=== PATIENT | male | born 1940 | race Caucasian/White ===

== ENCOUNTER → 2017-11-19 10:00 | Outpatient (CLI) | payer MEDICARE, SELFPAY | PROVIDERS: Family Provider Family Medicine | DX: Z23 Encounter for immunization (principal) | CPT/HCPCS: 90471; 90662 ==

== ENCOUNTER → 2018-03-06 13:57 | Outpatient (CLI) | payer MEDICARE, SELFPAY ==
[2018-03-06 14:43] LABS: Blood Urea Nitrogen 23 mg/dL (9-20); Calcium 9.8 mg/dL (8.4-10.2); Carbon Dioxide 28 mmol/L (22-32); Chloride 102 mmol/L (98-107); Cholesterol 196 mg/dL (140-199); Estimated Glomerular Filt Rate > 60.0 mL/min (>60); Glucose 113 mg/dL (80-110); HDL Cholesterol 38 mg/dL (40-60); HEMOLYSIS < 15 (0-50); LDL Cholesterol Calculated 127 mg/dL (<100); Potassium 4.1 mmol/L (3.4-5.1); Sodium 142 mmol/L (137-145); Triglycerides 156 mg/dL (35-150)
[2018-03-06 14:53] LABS: Add Manual Diff / Slide Review NO; Basophils Percent Auto 0.6 % (0-2); Eosinophils Percent Auto 2.1 % (2-4); Hematocrit 43.2 % (41-53); Hemoglobin 14.7 g/dL (13.5-17.5); Lymphocytes Percent Auto 30.2 % (25-40); Mean Corpuscular HGB Conc 33.9 % (30-36); Mean Corpuscular Hemoglobin 31.6 PG (26-34); Mean Corpuscular Volume 93.2 fL (80-100); Monocytes Percent Auto 6.9 % (3-14); Neutrophils Absolute Auto 3300 /uL (1500-7000); Neutrophils Percent Auto 60.2 % (50-75); Platelet Count 158 X10^3/uL (150-400); Red Blood Cell Count 4.64 X10^6/uL (4.5-5.9); Red Cell Distribution Width 14.1 % (11.6-14.8); White Blood Cell Count 5.4 X10^3/uL (4.5-11.0)
[2018-03-06 16:26] LABS: Vitamin D 25 Hydroxy (D3) 47.5 ng/mL (30.0-100.0)
== END ==
PROVIDERS: PCP Student in an Organized Health Care Education/Training Program; Visit Provider Student in an Organized Health Care Education/Training Program
DX: D69.6 Thrombocytopenia, unspecified (principal); E78.2 Mixed hyperlipidemia; Z13.220 Encounter for screening for lipoid disorders; E55.9 Vitamin D deficiency, unspecified
CPT/HCPCS: 36415; 80048; 80061; 82306; 85025

== ENCOUNTER → 2018-12-02 10:29 | Outpatient (CLI) | payer MEDICARE, SELFPAY | PROVIDERS: PCP Student in an Organized Health Care Education/Training Program | DX: Z23 Encounter for immunization (principal) | CPT/HCPCS: 90471; 90662 ==

== ENCOUNTER → 2019-12-22 03:42 | Outpatient (CLI) | payer MEDICARE, SELFPAY | PROVIDERS: PCP Student in an Organized Health Care Education/Training Program; Referring Provider Internal Medicine; Visit Provider Internal Medicine | DX: Z23 Encounter for immunization (principal) | CPT/HCPCS: 90471; 90662 ==

== ENCOUNTER → 2019-12-25 11:54 | Outpatient (CLI) | payer MEDICARE, SELFPAY ==
--- NOTE | 2019-12-25 11:58 | DI.RAD.S_ITS ---
PROCEDURE: XR KNEE RT 3V INDICATIONS: Right knee pain TECHNIQUE: 3 views of the knee were acquired. COMPARISON: None. FINDINGS: Bones: No fractures or dislocations. No suspicious bony lesions. Mild to moderate medial, lateral patellofemoral compartment narrowing. Punctate area of increased density is noted overlying the lateral compartment. Soft tissues: Moderate joint effusion. No suspicious soft tissue calcifications. IMPRESSION: 1. Moderate effusion with tricompartmental degenerative change. 2. Focus of increased density overlying the lateral compartment. This could represent a small loose body. Dictated by: Sharifa Pardo M.D. on 12/25/2019 at 13:57 Approved by: Sharifa Pardo M.D. on 12/25/2019 at 13:59
[2019-12-25 13:14] LABS: BUN Creatinine Ratio 22.3 (6-22); Blood Urea Nitrogen 23 mg/dL (9-20); Calcium 9.6 mg/dL (8.4-10.2); Carbon Dioxide 31 mmol/L (22-32); Chloride 104 mmol/L (98-107); Estimated Glomerular Filt Rate > 60.0 mL/min (>60); Glucose 108 mg/dL (80-110); HEMOLYSIS < 15 (0-50); Potassium 4.3 mmol/L (3.4-5.1); Sodium 141 mmol/L (137-145)
[2019-12-25 13:16] LABS: Hemoglobin A1C% w Est Avg Glu 5.9 % (4.0-6.0)
== END ==
PROVIDERS: PCP Student in an Organized Health Care Education/Training Program; Referring Provider Student in an Organized Health Care Education/Training Program; Visit Provider Student in an Organized Health Care Education/Training Program
DX: M25.561 Pain in right knee (principal); M25.461 Effusion, right knee; R73.9 Hyperglycemia, unspecified; Z79.1 Long term (current) use of non-steroidal anti-inflammatories (NSAID)
CPT/HCPCS: 36415; 73562; 80048; 83036

== ENCOUNTER → 2019-12-26 10:33 | Outpatient (CLI) | payer MEDICARE, SELFPAY ==
[2019-12-28 08:24] LABS: Fecal Immunochemical Test Negative (Negative)
== END ==
PROVIDERS: PCP Student in an Organized Health Care Education/Training Program; Referring Provider Student in an Organized Health Care Education/Training Program; Visit Provider Student in an Organized Health Care Education/Training Program
DX: Z12.11 Encounter for screening for malignant neoplasm of colon (principal)
CPT/HCPCS: 82274

== ENCOUNTER → 2020-03-10 09:34 | Outpatient (CLI) | payer MEDICARE, SELFPAY ==
[2020-03-10] MEDS: COVID-19 VACC(MODERNA-1)/PF 100 MCG/0.5 ML VIAL IM (09:39)
== END ==
PROVIDERS: PCP Student in an Organized Health Care Education/Training Program; Visit Provider Internal Medicine
DX: Z23 Encounter for immunization (principal)
CPT/HCPCS: 0011A; 91301

== ENCOUNTER → 2020-04-06 09:32 | Outpatient (CLI) | payer MEDICARE, SELFPAY ==
[2020-04-06] MEDS: COVID-19 VACC #2, MRNA(MOD) 100 MCG/0.5 ML VIAL IM (09:40)
== END ==
PROVIDERS: PCP Student in an Organized Health Care Education/Training Program; Visit Provider Internal Medicine
DX: Z23 Encounter for immunization (principal)
CPT/HCPCS: 0012A; 91301

== ENCOUNTER → 2020-05-03 10:55 | Outpatient (CLI) | payer MEDICARE, SELFPAY ==
--- NOTE | 2020-05-03 10:55 | DI.US.S_ITS ---
PROCEDURE: US RENAL COMPLETE INDICATIONS: Urinary retention TECHNIQUE: Real-time scanning was performed of the kidneys and bladder, with image documentation. COMPARISON: US, ABDOMEN LIMITED, 11/15/2011, 10:00. FINDINGS: Kidneys: Kidneys are normal in size. Right kidney measures 12.6 cm long; left kidney measures 12.2 cm long. Right renal cortical thickness is 2.5 cm; left renal cortical thickness is 2.5 cm. Renal cortical echotexture is normal. No hydronephrosis or nephrolithiasis. No suspicious solid mass lesions. Multiple left renal cysts, largest measuring up to 8.2 cm. Bladder: Pre-void bladder volume is 125 mL. Post-void residual is 59 mL. Pre-void images demonstrate no intraluminal masses or stones. On pre-void images, bilateral ureteral jets are noted with color Doppler interrogation. (Of note, ureteral jets may not be detectable in up to 25% of cases due to insufficient differences in specific gravity between ureteral and bladder urine). Enlarged prostate measuring 5.6 x 5.3 x 5.7 cm. Miscellaneous: No free pelvic fluid. IMPRESSION: Multiple left renal cysts; otherwise normal appearance of the kidneys and no hydronephrosis is present. Dictated by: Peter Pang [facility] Interpreted: Sharifa Pardo MD on 05/03/2020 at 12:35 Approved by: Sharifa Pardo M.D. on 05/03/2020 at 13:53
== END ==
PROVIDERS: PCP Student in an Organized Health Care Education/Training Program; Referring Provider Student in an Organized Health Care Education/Training Program; Visit Provider Student in an Organized Health Care Education/Training Program
DX: N40.0 Benign prostatic hyperplasia without lower urinary tract symptoms (principal); N52.9 Male erectile dysfunction, unspecified; R33.9 Retention of urine, unspecified; N28.1 Cyst of kidney, acquired
CPT/HCPCS: 76770

== ENCOUNTER → 2020-07-01 15:06 | Outpatient (CLI) | payer MEDICARE, SELFPAY ==
[2020-07-01 16:41] LABS: Hemoglobin A1C% w Est Avg Glu 5.8 % (4.0-6.0)
== END ==
PROVIDERS: PCP Student in an Organized Health Care Education/Training Program; Referring Provider Student in an Organized Health Care Education/Training Program; Visit Provider Student in an Organized Health Care Education/Training Program
DX: R73.03 Prediabetes (principal)
CPT/HCPCS: 36415; 83036

== ENCOUNTER → 2021-01-09 14:19 | Outpatient (CLI) | payer MEDICARE, SELFPAY ==
[2021-01-09 15:22] LABS: Hemoglobin A1C% w Est Avg Glu 5.7 % (4.0-6.0)
[2021-01-09 18:49] LABS: Creatinine Urine Random 163.1 mg/dL
[2021-01-09 18:53] LABS: Microalbumi Creatinin Ratio Ur 13.4 ug/mg CR (<30); Microalbumin Urine Random 2.2 mg/dL (0-1.6)
== END ==
PROVIDERS: PCP Student in an Organized Health Care Education/Training Program; Referring Provider Student in an Organized Health Care Education/Training Program; Visit Provider Student in an Organized Health Care Education/Training Program
DX: R73.03 Prediabetes (principal)
CPT/HCPCS: 36415; 82043; 82570; 83036

== ENCOUNTER → 2022-01-11 11:44 | Outpatient (CLI) | payer MEDICARE, SELFPAY ==
[2022-01-11 12:52] LABS: Hemoglobin A1C% w Est Avg Glu 5.9 % (4.0-6.0)
[2022-01-11 13:55] LABS: Blood Urea Nitrogen 20 mg/dL (9-20); Calcium 9.4 mg/dL (8.4-10.2); Carbon Dioxide 32 mmol/L (22-32); Chloride 100 mmol/L (98-107); Cholesterol 142 mg/dL (140-199); Estimated Glomerular Filt Rate > 60 mL/min (>60); Glucose 102 mg/dL (80-110); HDL Cholesterol 31 mg/dL (40-60); HEMOLYSIS < 15 (0-50); LDL Cholesterol Calculated 91 mg/dL (<100); Potassium 4.2 mmol/L (3.4-5.1); Sodium 140 mmol/L (137-145); Triglycerides 99 mg/dL (35-150)
[2022-01-11 16:15] LABS: Creatinine Urine Random 51.7 mg/dL
[2022-01-11 16:36] LABS: Microalbumin Urine Random < 0.6 mg/dL (0-1.6)
== END ==
PROVIDERS: PCP Student in an Organized Health Care Education/Training Program; Referring Provider Student in an Organized Health Care Education/Training Program; Visit Provider Student in an Organized Health Care Education/Training Program
DX: R73.03 Prediabetes (principal); E78.2 Mixed hyperlipidemia; Z79.1 Long term (current) use of non-steroidal anti-inflammatories (NSAID)
CPT/HCPCS: 36415; 80048; 80061; 82043; 82570; 83036

== ENCOUNTER → 2022-09-25 16:39 | Outpatient (CLI) | payer MEDICARE, SELFPAY ==
--- NOTE | 2022-09-25 16:41 | DI.RAD.S_ITS ---
PROCEDURE: XR SHOULDER RT MIN 2V INDICATIONS: rt shoulder pain TECHNIQUE: 3 views of the shoulder were acquired. COMPARISON: None. FINDINGS: Bones: No fractures or dislocations. No suspicious bony lesions. Visualized ribs appear intact. Mild glenohumeral and acromioclavicular joint osteoarthritis. Soft tissues: No suspicious soft tissue calcifications. IMPRESSION: Mild osteoarthritis. Dictated by: Anamaria Atwood MD, PhD on 09/25/2022 at 16:52 Approved by: Anamaria Atwood MD, PhD on 09/25/2022 at 16:52
== END ==
PROVIDERS: PCP Student in an Organized Health Care Education/Training Program; Referring Provider Pediatrics; Visit Provider Pediatrics
DX: M25.511 Pain in right shoulder (principal); M19.011 Primary osteoarthritis, right shoulder
CPT/HCPCS: 73030

== ENCOUNTER → 2022-11-16 15:04 | Outpatient (CLI) | payer MEDICARE, SELFPAY ==
[2022-11-16 15:32] LABS: Add Manual Diff / Slide Review NO; Basophils Absolute Auto 0 /uL (0-100); Basophils Percent Auto 0.7 % (0-2); Eosinophils Absolute Auto 500 /uL (0-450); Eosinophils Percent Auto 7.2 % (2-4); Hemoglobin 14.5 g/dL (13.5-17.5); Lymphocytes Absolute Auto 1300 /uL (1100-4500); Lymphocytes Percent Auto 19.7 % (25-40); Mean Corpuscular HGB Conc 34.4 % (30-36); Mean Corpuscular Hemoglobin 31.6 PG (26-34); Mean Corpuscular Volume 91.7 fL (80-100); Monocytes Absolute Auto 600 /uL (0-900); Monocytes Percent Auto 9.6 % (3-14); Neutrophils Absolute Auto 4200 /uL (1500-7000); Neutrophils Percent Auto 62.8 % (50-75); Platelet Count 125 X10^3/uL (150-400); Red Blood Cell Count 4.58 X10^6/uL (4.5-5.9); Red Cell Distribution Width 13.7 % (11.6-14.8); White Blood Cell Count 6.7 X10^3/uL (4.5-11.0)
[2022-11-16 15:46] LABS: Alanine Aminotransferase 28 IU/L (<50); Albumin 4.6 g/dL (3.5-5.0); Albumin Globulin Ratio 1.4 (1.0-2.8); Alkaline Phosphatase 61 U/L (38-126); Aspartate Aminotransferase 48 IU/L (17-59); BUN Creatinine Ratio 28.6 (6-22); Bilirubin Total 0.7 mg/dL (0.2-1.3); Blood Urea Nitrogen 26 mg/dL (9-20); Calcium 9.9 mg/dL (8.4-10.2); Carbon Dioxide 30 mmol/L (22-32); Chloride 102 mmol/L (98-107); Cholesterol 150 mg/dL (140-199); Estimated Glomerular Filt Rate > 60 mL/min (>60); Globulin 3.3 g/dL (1.7-4.1); Glucose 100 mg/dL (80-110); HDL Cholesterol 33 mg/dL (40-60); HEMOLYSIS 15 (0-50); LDL Cholesterol Calculated 87 mg/dL (<100); Potassium 4.1 mmol/L (3.4-5.1); Sodium 139 mmol/L (137-145); Total Protein 7.9 g/dL (6.3-8.2); Triglycerides 151 mg/dL (35-150)
[2022-11-18 19:51] LABS: Hep C Virus Ab w/Reflex Quant NEGATIVE s/c (NEGATIVE)
== END ==
PROVIDERS: PCP Pediatrics; Referring Provider Pediatrics; Visit Provider Pediatrics
DX: E78.2 Mixed hyperlipidemia (principal); Z00.00 Encounter for general adult medical examination without abnormal findings; N40.0 Benign prostatic hyperplasia without lower urinary tract symptoms; M18.9 Osteoarthritis of first carpometacarpal joint, unspecified
CPT/HCPCS: 36415; 80053; 80061; 85025; 86803

== ENCOUNTER → 2023-03-25 15:55 | Outpatient (CLI) | payer MEDICARE, SELFPAY ==
--- NOTE | 2023-03-25 15:58 | DI.RAD.S_ITS ---
PROCEDURE: XR LUMBAR SPINE MIN 4V INDICATIONS: eval and treat back pain TECHNIQUE: 5 views of the lumbar spine were acquired, including bilateral oblique views. COMPARISON: None. FINDINGS: Bones: 5 nonrib-bearing vertebrae are present. There is normal bony alignment. No vertebral body compression fracture seen. No suspicious bony lesions. Soft tissues: Overlying bowel gas pattern is normal. No suspicious soft tissue calcifications. Oblique images: No pars defect seen. IMPRESSION: No acute abnormality seen Dictated by: Curly Gillespie M.D. on 03/25/2023 at 18:26 Approved by: Curly Gillespie M.D. on 03/25/2023 at 18:28
== END ==
PROVIDERS: PCP Family Medicine; Referring Provider Family Medicine; Visit Provider Family Medicine
DX: M47.9 Spondylosis, unspecified (principal)
CPT/HCPCS: 72110

== ENCOUNTER 2023-06-26 10:35 | Outpatient (CLI) | payer MEDICARE, SELFPAY ==
[2023-06-26] VITALS (8 sets, daily range): BP systolic 134–170; BP diastolic 65–81; PULSE 53–69; RESP 14–19; TEMP 36.2; O2SAT 96–100
--- NOTE | 2023-06-26 | DI.RAD.S_ITS ---
PROCEDURE: PAIN CLUNEAL NRV BLOCK DEBORAH INDICATIONS: CLUENAL NEURALGIA COMPARISON: None. FINDINGS: Fluoroscopic spot filming was performed to verify placement of spinal needles at the superior iliac crest level(s), as labeled on the films. Appropriate location(s) of the needle tip(s) was confirmed by injection of iodinated contrast. IMPRESSION: Spinal needles projected at the superior iliac crests. Please see procedural note for details. Dictated by: Pedro Lerma M.D. on 06/26/2023 at 22:30 Approved by: Pedro Lerma M.D. on 06/26/2023 at 22:30
[2023-06-26] MEDS: MIDAZOLAM 2 MG/2 ML VIAL 1 MG IV (11:45)
[2023-06-26] MEDS: DEXAMETHASONE 10 MG/ML VIAL 20 MG INJ (11:48)
[2023-06-26] MEDS: BUPIVACAINE 0.25% (PF) VIAL 10 ML INJ (11:48)
[2023-06-26] MEDS: iopamidoL 15 ML VIAL 3 ML INJ (11:49)
--- NOTE | 2023-06-26 12:29 | P.PCN_ITS ---
Date/Time/Diagnoses Date of procedure: 06/26/23 Time of procedure: 11:00 Procedure Notes Physician: Miko Alejo Total Fluoroscopy time (seconds): 18 Total sedation minutes: 10 Procedure in detail & Post-procedure care: Bilateral Cluneal Nerve Injection Indications: Charlie is presenting for treatment of cluneal neuralgia with low back and buttock pain. Preoperative diagnosis: Bilateral cluneal neuralgia Postoperative diagnosis: Same Focused Examination: Ax3 Mood and affect are normal Vital Signs: VSS ASA: 2 Consent: Following review of allergies and potential side effects/complications, including, but not necessarily limited to, infection, allergic reaction, local tissue breakdown, stroke, temporary or permanent nerve injury, paralysis, and possible , the patient indicated that they understood and agreed to proceed.? An informed consent document was signed by the patient, witnessed by a nurse and placed in the patient's chart.? Additionally, other treatment options including medications and physical therapy were reviewed with the patient. All questions were answered. Site was then marked. Anesthesia: After review of previous anesthetic history and IV conscious sedation, the patient was deemed safe to proceed with today's procedure with IV conscious sedation. IV sedation was accomplished with midazolam 1 mg administered by the RN after order by Dr. Alejo. Sedation was titrated to patient comfort during the course of the procedure. Patient remained responsive to all verbal commands. Position: Prone Monitoring: NIBP, Pulse oximetry, 3 lead EKG Needle used: 25 gauge, 3.5 inch spinal needle x3 Contrast: Isovue 300-M 3mL Injectate: Dexamethasone 7.5 mg with 8 mL 0.25% Bupivacaine - per side Technique: The skin was prepped with chloraprep and then draped in a sterile fashion. Time out was performed as per protocol. Oxygen applied via NC. Midline of the spine was identified using fluoroscopy. The skin was measured 8 cm from midline and sterile catrachita placed on the skin delineating the superior aspect of the iliac crest on the right. Two flores were subsequently made 2 cm medial and 2 cm lateral for a total of 3 target sites. Skin and subcutaneous structures of the needle entry sites were then infiltrated with 5 mL of lidocaine 1%. Under AP and contralateral oblique control, the needle was guided to the superior aspect of the iliac crest in the 3 locations. Contrast was injected and the spread was consistent with appropriate needle location. There was no evidence for intravascular uptake. After negative aspiration, the above-mentioned injectate was then slowly administered and the needles withdrawn. The patient expressed no unusual discomfort or paresthesias during needle positioning or injection. Band- Aids applied to injection sites. This process was then repeated for the left side. EBL: less than 1 ml Complications: None Post Procedure: Patient was taken to the recovery and monitored. The patient was provided a Pain Log to continue to record the patient's response to the target- specific procedure prior to the patient's follow-up visit with the referring physician. Patient was stable upon discharge. Detailed post procedure instructions were provided. Patient was asked to call in the event of worsening pain, fever, weakness, numbness or bladder/bowel incontinence.
== END 2023-06-26 12:18 | disposition home or self-care (01) ==
LOC: RAD 10:36
PROVIDERS: PCP Family Medicine; Referring Provider Anesthesiology; Visit Provider Anesthesiology
DX: G58.8 Other specified mononeuropathies (principal)
CPT/HCPCS: 64450; 99152; J1100; J2250; J3490

== ENCOUNTER → 2023-09-03 14:29 | Outpatient (CLI) | payer MEDICARE, SELFPAY ==
--- NOTE | 2023-09-03 14:30 | DI.RAD.S_ITS ---
PROCEDURE: XR KNEE RT 3V INDICATIONS: Right knee pain TECHNIQUE: 3 views of the knee were acquired. COMPARISON: [facility], , XR KNEE RT 3V, 12/25/2019, 12:06. FINDINGS: Bones: No fractures or dislocations. Osteophytic lipping. Not significantly changed. No suspicious bony lesions. Soft tissues: No joint effusion. No suspicious soft tissue calcifications. IMPRESSION: Moderate right knee DJD. Dictated by: Jas Hodges M.D. on 09/03/2023 at 17:46 Approved by: Jas Hodges M.D. on 09/03/2023 at 17:49
== END ==
PROVIDERS: PCP Family Medicine; Referring Provider Nurse Practitioner Family; Visit Provider Nurse Practitioner Family
DX: M25.561 Pain in right knee (principal); M17.11 Unilateral primary osteoarthritis, right knee
CPT/HCPCS: 73562

== ENCOUNTER → 2023-11-20 06:52 | Outpatient (CLI) | payer MEDICARE, SELFPAY ==
[2023-11-20 08:18] LABS: Add Manual Diff / Slide Review NO; Basophils Absolute Auto 0 /uL (0-100); Basophils Percent Auto 0.6 % (0-2); Eosinophils Absolute Auto 100 /uL (0-450); Eosinophils Percent Auto 2.6 % (2-4); Hematocrit 41.9 % (41-53); Hemoglobin 14.3 g/dL (13.5-17.5); Lymphocytes Absolute Auto 1800 /uL (1100-4500); Lymphocytes Percent Auto 31.8 % (25-40); Mean Corpuscular HGB Conc 34.1 % (30-36); Mean Corpuscular Hemoglobin 30.4 PG (26-34); Monocytes Absolute Auto 900 /uL (0-900); Monocytes Percent Auto 16.5 % (3-14); Neutrophils Absolute Auto 2700 /uL (1500-7000); Neutrophils Percent Auto 48.5 % (50-75); Platelet Count 123 X10^3/uL (150-400); Red Blood Cell Count 4.71 X10^6/uL (4.5-5.9); Red Cell Distribution Width 14.8 % (11.6-14.8); White Blood Cell Count 5.6 X10^3/uL (4.5-11.0)
[2023-11-20 08:31] LABS: Hemoglobin A1C% w Est Avg Glu 5.7 % (4.0-6.0)
[2023-11-20 08:42] LABS: Alanine Aminotransferase 16 IU/L (<50); Albumin 4.2 g/dL (3.5-5.0); Albumin Globulin Ratio 1.5 (1.0-2.8); Alkaline Phosphatase 59 U/L (38-126); Aspartate Aminotransferase 24 IU/L (17-59); BUN Creatinine Ratio 29.1 (6-22); Bilirubin Total 0.8 mg/dL (0.2-1.3); Blood Urea Nitrogen 30 mg/dL (9-20); Calcium 9.9 mg/dL (8.4-10.2); Carbon Dioxide 28 mmol/L (22-32); Chloride 103 mmol/L (98-107); Estimated Glomerular Filt Rate > 60 mL/min (>60); Globulin 2.8 g/dL (1.7-4.1); Glucose 106 mg/dL (80-110); HEMOLYSIS < 15 (0-50); Potassium 4.1 mmol/L (3.4-5.1); Sodium 140 mmol/L (137-145)
[2023-11-20 08:59] LABS: HEMOLYSIS < 15 (0-50); Iron 98 ug/dL (49-181)
[2023-11-20 09:11] LABS: Percent Iron Saturation 27 % (20-50); Total Iron Binding Capacity 364 ug/dL (261-462); Transferrin 262 mg/dL (206-381)
[2023-11-20 09:55] LABS: Vitamin B12 655 pg/mL (239-931)
== END ==
PROVIDERS: PCP Family Medicine; Referring Provider Family Medicine; Visit Provider Family Medicine
DX: Z00.00 Encounter for general adult medical examination without abnormal findings (principal); R73.03 Prediabetes; N40.0 Benign prostatic hyperplasia without lower urinary tract symptoms; N52.9 Male erectile dysfunction, unspecified
CPT/HCPCS: 36415; 80053; 82607; 83036; 83540; 83550; 85025

== ENCOUNTER → 2023-12-09 06:48 | Outpatient (CLI) | payer MEDICARE, SELFPAY ==
[2023-12-09 09:47] LABS: Cholesterol 142 mg/dL (140-199); HDL Cholesterol 35 mg/dL (40-60); LDL Cholesterol Calculated 91 mg/dL (<100); Triglycerides 82 mg/dL (35-150)
[2023-12-09 10:12] LABS: Prostate Specific Antigen Scrn 6.46 ng/mL (0.1-4.0)
[2023-12-09 10:16] LABS: TSH w/ Reflex to FT4 1.74 uIU/mL (0.47-4.68)
== END ==
PROVIDERS: PCP Family Medicine; Referring Provider Family Medicine; Visit Provider Family Medicine
DX: E78.2 Mixed hyperlipidemia (principal); Z12.5 Encounter for screening for malignant neoplasm of prostate; N40.1 Benign prostatic hyperplasia with lower urinary tract symptoms; R35.1 Nocturia; Z79.899 Other long term (current) drug therapy
CPT/HCPCS: 36415; 80061; 84443; G0103

== ENCOUNTER → 2023-12-12 06:52 | Outpatient (CLI) | payer MEDICARE, SELFPAY ==
[2023-12-13 11:12] LABS: Fecal Immunochemical Test Negative (Negative)
== END ==
PROVIDERS: PCP Family Medicine; Referring Provider Family Medicine; Visit Provider Family Medicine
DX: Z12.11 Encounter for screening for malignant neoplasm of colon (principal)
CPT/HCPCS: 82274

== ENCOUNTER → 2024-02-13 19:05 | Outpatient (CLI) | payer MEDICARE, SELFPAY ==
--- NOTE | 2024-02-13 19:12 | DI.MRI.S_ITS ---
PROCEDURE: MR PELVIC PROSTATE PROTOCOL INDICATIONS: Elevated PSA TECHNIQUE: Coronal HASTE, axial T1 FSE with fat saturation, 3-plane nonbreath-hold T2 FSE. After the administration of contrast, dynamic axial, delayed axial and coronal VIBE or 2-D FLASH with fat saturation through the pelvis. Diffusion weighted imaging and ADC was performed. COMPARISON: None. FINDINGS: Image quality: Diffusion weighted and dynamic contrast enhanced images are diagnostic. Prostate: Gland size is 5.9 x 4.9 x 6 cm cm; ellipsoid gland volume is 90.2 mL. Estimated PSA density is 0.071 Transitional zone heterogenous nodules are present, either well encapsulated or mostly encapsulated, compatible with PI-RADS 1 or 2 likely BPH nodules. These findings can obscure small cancers. Seminal vesicles are clear. Genitourinary system: Trabeculated bladder is usually from chronic obstruction. Bowel and peritoneum: Colonic diverticula. No pathologic ascites Nodes and vessels: No pathologic lymph nodes by size criteria. No aneurysmal vessel in the field of view. Soft tissues: Possible small fat containing right inguinal hernia. Bones: No suspicious osseous enhancement IMPRESSION: No PI-RADS 4 or 5 lesions suspicious for clinically significant adenocarcinoma. Primary finding is prostatomegaly and BPH. Consider future surveillance with PSA and possible MRI. Dictated by: Paulo Del Roi M.D. on 02/14/2024 at 11:41 Approved by: Paulo Del Rio M.D. on 02/14/2024 at 11:46
== END ==
LOC: MRI 19:07
PROVIDERS: PCP Family Medicine; Referring Provider Urology; Visit Provider Urology
DX: N40.0 Benign prostatic hyperplasia without lower urinary tract symptoms (principal); R97.20 Elevated prostate specific antigen [PSA]; N32.89 Other specified disorders of bladder; K57.90 Diverticulosis of intestine, part unspecified, without perforation or abscess without bleeding
CPT/HCPCS: 72197; A9579

== ENCOUNTER → 2024-04-21 14:55 | Outpatient (CLI) | payer MEDICARE, SELFPAY | PROVIDERS: PCP Family Medicine; Visit Provider Nurse Practitioner Family | DX: R39.9 Unspecified symptoms and signs involving the genitourinary system (principal) | CPT/HCPCS: 87086 ==

== ENCOUNTER → 2024-05-05 13:55 | Outpatient (CLI) | payer MEDICARE, SELFPAY ==
[2024-05-07 07:11] LABS: PSA Free % 25.6 % (.); PSA, Total 6.1 ng/mL (0.0-4.0)
== END ==
LOC: LAB 13:56
PROVIDERS: PCP Family Medicine; Referring Provider Urology; Visit Provider Urology
DX: N40.1 Benign prostatic hyperplasia with lower urinary tract symptoms (principal); N13.8 Other obstructive and reflux uropathy; R97.20 Elevated prostate specific antigen [PSA]
CPT/HCPCS: 36415; 84153; 84154

== ENCOUNTER → 2024-08-12 08:32 | Outpatient (CLI) | payer MEDICARE, SELFPAY ==
--- NOTE | 2024-08-12 08:33 | DI.RAD.S_ITS ---
PROCEDURE: XR CHEST 2V INDICATIONS: Deep cough, rhonchi x 1 wk TECHNIQUE: 2 views of the chest were acquired. COMPARISON: [facility], , CHEST 2 VIEW, 02/21/2017, 15:55. FINDINGS: Surgical changes and devices: None. Lungs and pleura: Ill-defined opacity in left lower lung field is seen. No pleural effusions or pneumothorax. Mediastinum: Mediastinal contours are normal. Heart size is normal. Bones and chest wall: No suspicious bony abnormalities. Soft tissues appear unremarkable. IMPRESSION: Suggestion of left lower lobe infiltrate. No pleural effusion or pneumothorax. Clinical correlation and follow-up is recommended. Dictated by: Yohannes Oneill M.D. on 08/12/2024 at 8:45 Approved by: Yohannes Oneill M.D. on 08/12/2024 at 8:45
== END ==
PROVIDERS: PCP Family Medicine; Referring Provider Student in an Organized Health Care Education/Training Program; Visit Provider Student in an Organized Health Care Education/Training Program
DX: R05.9 Cough, unspecified (principal); R09.89 Other specified symptoms and signs involving the circulatory and respiratory systems
CPT/HCPCS: 71046

== ENCOUNTER → 2024-08-19 15:58 | Outpatient (CLI) | payer MEDICARE, SELFPAY ==
[2024-08-19 19:37] LABS: Influenza A - CEPHEID Flu A NEGATIVE (NEGATIVE); Influenza B - CEPHEID Flu B NEGATIVE (NEGATIVE); Respiratory Syncytial Virus Negative (Negative)
[2024-08-19 19:50] LABS: COVID-19 CEPHEID 4-PLEX PCR Negative (Negative)
== END ==
PROVIDERS: PCP Family Medicine; Visit Provider Physician Assistant
DX: R05.1 Acute cough (principal)
CPT/HCPCS: 0241U

== ENCOUNTER → 2024-08-19 16:00 | Outpatient (CLI) | payer MEDICARE, SELFPAY ==
--- NOTE | 2024-08-19 16:01 | DI.RAD.S_ITS ---
PROCEDURE: XR CHEST 2V INDICATIONS: f/u on pneumonia LLL TECHNIQUE: 2 views of the chest were acquired. COMPARISON: [facility], , XR CHEST 2V, 08/12/2024, 8:28. FINDINGS: Surgical changes and devices: None. Lungs and pleura: Improving left lower lobe opacities. No pleural effusions or pneumothorax. Mediastinum: Mediastinal contours are normal. Heart size is normal. Bones and chest wall: No suspicious bony abnormalities. Soft tissues appear unremarkable. IMPRESSION: Improving left lower lobe opacities compatible with resolving pneumonia. Approved by: Gabriel Olivo M.D. on 08/19/2024 at 16:46
== END ==
PROVIDERS: PCP Family Medicine; Referring Provider Physician Assistant; Visit Provider Physician Assistant
DX: J18.9 Pneumonia, unspecified organism (principal); R05.1 Acute cough
CPT/HCPCS: 0241U; 71046

== ENCOUNTER → 2024-09-18 12:59 | Outpatient (CLI) | payer MEDICARE, SELFPAY ==
[2024-09-20 08:08] LABS: PSA, Total 5.2 ng/mL (0.0-4.0)
== END ==
PROVIDERS: PCP Family Medicine; Referring Provider Urology; Visit Provider Urology
DX: R97.20 Elevated prostate specific antigen [PSA] (principal)
CPT/HCPCS: 36415; 84153; 84154

== ENCOUNTER → 2024-11-25 06:52 | Outpatient (CLI) | payer MEDICARE, SELFPAY ==
[2024-11-25 07:46] LABS: Hematocrit 39.8 % (41-53); Hemoglobin 13.6 g/dL (13.5-17.5); Mean Corpuscular HGB Conc 34.2 % (30-36); Mean Corpuscular Hemoglobin 29.0 PG (26-34); Mean Corpuscular Volume 84.8 fL (80-100); Platelet Count 141 X10^3/uL (150-400)
[2024-11-25 07:49] LABS: Add Manual Diff / Slide Review YES
[2024-11-25 07:58] LABS: Basophils Percent Manual 1.0 % (0-1); Eosinophils Percent Manual 3.0 % (2-4); Lymphocytes Percent Manual 32.0 % (25-45); Monocytes Percent Manual 15.0 % (2-11); Neutrophils Absolute Manual 2842 /uL (3000-5900); Segmented Neutrophils Percent 49.0 % (38-70); Total Cells Counted 100
[2024-11-25 07:59] LABS: Anisocytosis 1+
[2024-11-25 08:02] LABS: HEMOLYSIS < 15 (0-50); Iron 78 ug/dL (49-181)
[2024-11-25 08:04] LABS: Alanine Aminotransferase 18 IU/L (<50); Albumin 4.6 g/dL (3.5-5.0); Albumin Globulin Ratio 1.7 (1.0-2.8); Alkaline Phosphatase 59 U/L (38-126); Blood Urea Nitrogen 20 mg/dL (9-20); Calcium 9.5 mg/dL (8.4-10.2); Carbon Dioxide 27 mmol/L (22-32); Chloride 103 mmol/L (98-107); Cholesterol 123 mg/dL (140-199); Estimated Glomerular Filt Rate > 60 mL/min (>60); Globulin 2.7 g/dL (1.7-4.1); Glucose 92 mg/dL (70-99); HDL Cholesterol 38 mg/dL (40-60); HEMOLYSIS < 15 (0-50); Potassium 4.2 mmol/L (3.4-5.1); Sodium 140 mmol/L (137-145); Total Protein 7.3 g/dL (6.3-8.2); Triglycerides 88 mg/dL (35-150)
[2024-11-25 08:13] LABS: Percent Iron Saturation 22 % (20-50); Total Iron Binding Capacity 355 ug/dL (261-462); Transferrin 291 mg/dL (206-381)
[2024-11-25 08:34] LABS: TSH w/ Reflex to FT4 2.89 uIU/mL (0.47-4.68)
[2024-11-25 08:52] LABS: Vitamin B12 879 pg/mL (239-931)
== END ==
PROVIDERS: PCP Family Medicine; Referring Provider Family Medicine; Visit Provider Family Medicine
DX: N13.8 Other obstructive and reflux uropathy (principal); E78.2 Mixed hyperlipidemia; N40.1 Benign prostatic hyperplasia with lower urinary tract symptoms; Z00.00 Encounter for general adult medical examination without abnormal findings
CPT/HCPCS: 36415; 80053; 80061; 82607; 83540; 83550; 84443; 85007; 85025

== ENCOUNTER → 2024-12-12 10:41 | Outpatient (CLI) | payer MEDICARE, SELFPAY | PROVIDERS: PCP Family Medicine; Referring Provider Family Medicine; Visit Provider Family Medicine | DX: Z00.00 Encounter for general adult medical examination without abnormal findings (principal); N40.1 Benign prostatic hyperplasia with lower urinary tract symptoms; N13.8 Other obstructive and reflux uropathy; E78.2 Mixed hyperlipidemia | CPT/HCPCS: 82274 ==

== ENCOUNTER → 2024-12-13 14:38 | Outpatient (CLI) | payer MEDICARE, SELFPAY ==
--- NOTE | 2024-12-13 14:40 | DI.MRI.S_ITS ---
PROCEDURE: MR LUMBAR SPINE WO CON INDICATIONS: Lumbar Facet Arthropathy TECHNIQUE: Noncontrast sagittal T1 spin echo and T2 fast echo, sagittal STIR, and T2 fast spin echo through the lumbar spine. In cases with scoliosis, additional coronal T2 fast spin echo may be performed. COMPARISON: [facility], CR, XR LUMBAR SPINE MIN 4V, 03/25/2023, 16:00. FINDINGS: Image quality: Excellent Straightening of the lumbar spine. Multilevel mild fibrovascular endplate change, most pronounced at L5-S1. Multilevel disc bulge and disc desiccation. Vertebral body heights are well maintained. Conus terminates at the level of L1-2, and is unremarkable. Right neural foraminal stenosis: Mild at L3-4, L4-5, L5-S1. Left neural foraminal stenosis: Mild at L3-4, [id number] at L4-5 and mild at L5-S1. Axial images: T12-L1: No central canal stenosis. L1-2: No central canal stenosis . L2-3: Mild disc bulge. Mild bilateral facet arthropathy. No central canal stenosis. L3-4: Moderate bilateral facet arthropathy. Disc bulge. Mild central canal stenosis. L4-5: Mild bilateral facet arthropathy. Disc bulge, superimposed on central and left paracentral disc protrusion, resulting abutment of left descending nerve roots. mild central canal stenosis. L5-S1: Mild bilateral facet arthropathy. No central canal stenosis. Visualized sacrum is intact. No abdominal aortic aneurysm. Multiple small right renal cyst. Large left renal cysts, partially visualized. 2.0 cm indeterminate left adrenal nodule. IMPRESSION: 1. Multilevel degenerative changes, most pronounced at L4-5, where there is central and left paracentral disc protrusion, resulting in abutment of left descending nerve roots, mild central canal stenosis, and [id number] left neural foraminal stenosis. 2. 2.0 cm indeterminate left adrenal nodule. Further evaluation with MR or CT adrenal protocol can be considered. Dictated by: Libia Kearns M.D. on 12/14/2024 at 11:24 Approved by: Libia Kearns M.D. on 12/14/2024 at 11:42
== END ==
PROVIDERS: PCP Family Medicine; Referring Provider Physical Medicine & Rehabilitation; Visit Provider Physical Medicine & Rehabilitation
DX: M47.816 Spondylosis without myelopathy or radiculopathy, lumbar region (principal); M47.817 Spondylosis without myelopathy or radiculopathy, lumbosacral region; M51.369 Other intervertebral disc degeneration, lumbar region without mention of lumbar back pain or lower extremity pain; M48.061 Spinal stenosis, lumbar region without neurogenic claudication; M48.07 Spinal stenosis, lumbosacral region; N28.1 Cyst of kidney, acquired
CPT/HCPCS: 72148

== ENCOUNTER 2025-02-04 14:21 | Outpatient (CLI) | payer MEDICARE, SELFPAY ==
[2025-02-04] VITALS (8 sets, daily range): BP systolic 131–162; BP diastolic 64–79; PULSE 46–58; RESP 16–18; TEMP 36.4; O2SAT 38–99
[2025-02-04] MEDS: MIDAZOLAM 2 MG/2 ML VIAL IV (15:55)
[2025-02-04] MEDS: LIDOCAINE 1% 20 ML 5 ML INJ (15:59)
--- NOTE | 2025-02-04 16:17 | P.PCN_ITS ---
Date/Time/Diagnoses Date of procedure: 02/04/25 Time of procedure: 16:17 Pre-procedure diagnosis: 1. FACET ARTHROPATHY Post-procedure diagnosis: same Procedure Notes Procedure: 1. BILATERAL- L4, L5 and S1 DIAGNOSTIC MB BLOCKS with LA Anesthetic Indications: Charlie is referred by Dr. Banegas for treatment of Bilateral Axial LBP. Physician: Nishant Garcia Total Fluoroscopy time (seconds): 12 Total sedation minutes: 15 Complications: none Procedure in detail & Post-procedure care: DESCRIPTION OF PROCEDURE Fluoroscopically guided, contrast-controlled bilateral L4, L5 and S1 medial branch blocks with 0.5cc of 0.5% Marcaine. Following review of allergy and review of potential side effects and complications, including, but not necessarily limited to, infection, allergic reaction, local tissue breakdown, nerve injury, paralysis, stroke and possible , the patient indicated that the patient understood and agreed to proceed. An informed consent document was signed by the patient, witnessed by a nurse, and placed in the patient's chart. After review of previous anaesthesic history and IV conscious sedation the patient was deemed safe to proceed with today's procedure with IV conscious sedation as ASA class II designation. Safety time-out was performed to confirm patient ID, procedure to be performed and site of procedure. IV sedation was accomplished with a combination of 2mg of Versed was administered by the RN after DO order, titrated to patient comfort during the course of the procedure while the patient remained responsive to all verbal commands In the prone position, following sterile prep and drape of the lumbar region, the right L4, L5 and S1 anatomical location of the medial branch of the dorsal ramus was identified fluoroscopically. Subsequently an anesthetic skin wheal using 1% lidocaine solution was initiated at each of the anatomical spots. Subsequently then a 22-gauge 3.5-inch spinal needle was atraumatically introduced and advanced under fluoroscopic guidance at each of the corresponding sites at the right L4, L5 and S1 MB. After negative aspiration, 0.2cc of Isovue 200 was injected, confirming placement without vascular or intrathecal uptake. Subsequently then 0.5cc of 0.5% Marcaine solution was injected at each of the corresponding sites at the right L4, L5 and S1 medial branch locations. The identical procedure was replicated on the left. The patient tolerated the procedure well without signs or symptoms of complications prior to transfer to the recovery area continued monitoring without incident. Post-procedure, the patient was monitored initiating provocative activities to measure the amount of relief from block of the facetogenic pain. The patient reported a VAS of 7 prior to the procedure and a post-procedure VAS of 1. It has been a pleasure to assist in the diagnostic and therapeutic care of your patient. POST OP INSTRUCTIONS The patient was provided with a Pain Log to complete over the next several hours and subsequent days prior to the patient's follow up with the ordering physician. If the patient has assistant store manager operations relief to the solution applied, then they may be a candidate for medial branch rhizotomy. The patient is aware, was provided, once again, with a Pain Log and will follow up with the referring physician for review and clinical correlation
== END 2025-02-04 17:04 | disposition home or self-care (01) ==
LOC: RAD 14:22
PROVIDERS: PCP Family Medicine; Referring Provider Physical Medicine & Rehabilitation; Visit Provider Physical Medicine & Rehabilitation
DX: M47.816 Spondylosis without myelopathy or radiculopathy, lumbar region (principal); M47.817 Spondylosis without myelopathy or radiculopathy, lumbosacral region
CPT/HCPCS: 64493; 64494; 99152; 99153; J2250